=== PATIENT | female | born 1995 | race African-American/Black ===

== ENCOUNTER 2016-08-28 21:52 | Emergency (ER) | payer OTHER ==
[~2016-08-28] VITALS: Ht 170.2 cm; Wt 62.7 kg
[~2016-08-28 21:52] MED LIST: NAPROSYN500 MG PO; NORCO 5/3251 TABLET PO; PONSTEL250 MG PO; VALIUM2 MG PO; ZOFRAN ODT4 MG PO; ZOFRAN4 MG PO
[2016-08-28 23:19] LABS: HEMATOCRIT 41.2 % (36.0-46.0); MCH 30.2 PG (29.0-34.0); MCV 91.4 FL (83-99); MEAN PLAT.VOLUME 10.5 uM^3 (9.5-12.4); PLATELET COUNT 211 K/uL (156-360); RBC DIS.WIDTH-CV 13.7 % (11.8-14.6); RBC DIS.WIDTH-SD 46.5 % (39-53); RED BLOOD COUNT 4.51 M/uL (3.80-5.20); WHITE BLOOD COUNT 5.2 K/uL (4.1-10.2)
[2016-08-28 23:27] LABS: CHLORIDE 107 mEq/L (99-109); SODIUM 139 mEq/L (136-147)
[2016-08-28 23:28] LABS: GLUCOSE 89 mg/dL (70-99)
[2016-08-28 23:30] LABS: ANION GAP 9 MEQ/L (2-14)
[2016-08-28 23:32] LABS: GFR ESTIMATE (CALCULATED) > 59 mL/min/
[2016-08-28 23:33] LABS: UREA NITROGEN (BUN) 11 mg/dL (9-23)
[2016-08-28 23:40] LABS: QUANTITATIVE HCG < 4.0 MIU/ML
[2016-08-29] MEDS ORDERED: SKELAXIN800 MG PO (00:27)
[2016-08-29] MEDS ORDERED: PERCOCET 5/31 TABLET PO (00:27)
[2016-08-29 00:57] VITALS: BP 129/91
== END 2016-08-29 00:28 | disposition home or self-care (01) ==
LOC: EME 21:52
PROVIDERS: Physician Assistant
DX: M54.5 Low back pain (principal); G89.29 Other chronic pain; M79.604 Pain in right leg; M79.605 Pain in left leg; R10.9 Unspecified abdominal pain; M51.36 Other intervertebral disc degeneration, lumbar region
CPT/HCPCS: 72100; 80048; 81003; 84702; 85027; 99281; 99285; J1885; J2930; J3010

== ENCOUNTER 2016-10-23 16:33 | Emergency (ER) | payer OTHER ==
[~2016-10-23] VITALS: Ht 170.2 cm; Wt 65.0 kg
[~2016-10-23 16:33] MED LIST changes: +PERCOCET 5/31 TABLET PO; +SKELAXIN800 MG PO
[2016-10-23 17:48] LABS: HEMATOCRIT 38.5 % (36.0-46.0); MCH 29.8 PG (29.0-34.0); MCV 90.4 FL (83-99); RBC DIS.WIDTH-CV 13.6 % (11.8-14.6); RED BLOOD COUNT 4.26 M/uL (3.80-5.20); WHITE BLOOD COUNT 5.1 K/uL (4.1-10.2)
[2016-10-23 18:08] LABS: CHLORIDE 108 mEq/L (99-109); POTASSIUM 3.3 mEq/L (3.7-5.4); SODIUM 142 mEq/L (136-147)
[2016-10-23 18:09] LABS: GLUCOSE 91 mg/dL (70-99)
[2016-10-23 18:11] LABS: ANION GAP 11 MEQ/L (2-14)
[2016-10-23 18:13] LABS: GFR ESTIMATE (CALCULATED) > 59 mL/min/
[2016-10-23 18:14] LABS: UREA NITROGEN (BUN) 9 mg/dL (9-23)
[2016-10-23 19:09] LABS: MEAN PLAT.VOLUME 10.8 uM^3 (9.5-12.4); PLAT.SUFFICIENCY ADEQUATE; PLATELET COUNT 212 K/uL (156-360)
[2016-10-23 20:09] VITALS: BP 138/86
== END 2016-10-23 20:09 | disposition home or self-care (01) ==
LOC: EME 16:33
DX: R00.2 Palpitations (principal); E87.6 Hypokalemia; Z97.5 Presence of (intrauterine) contraceptive device
CPT/HCPCS: 71020; 80048; 85027; 93005; 94640; 99281; 99284